=== PATIENT | male | born 1995 | race Caucasian/White ===

== ENCOUNTER 2021-10-30 15:45 | Emergency (ER) | payer MEDICAID ==
[~2021-10-30] VITALS: Ht 185.4 cm; Wt 64.0 kg
[2021-10-30] MEDS ORDERED: ondansetron/PF 4mg/2ml inj IV ONE (16:00)
[2021-10-30] MEDS ORDERED: levetiracetam inj 1,000 MG in normal saline 100ml IV soln 90 ML IV ONE (16:00)
[2021-10-30] MEDS ORDERED: normal saline 1000ml 1,000 ML IV ONE (16:00)
[2021-10-30] MEDS ORDERED: levetiracetam inj 1,000 MG in normal saline 100ml IV soln 100 ML IV ONE (16:09)
[2021-10-30 16:35] LABS: BASOPHILS % (AUTO) 0.1 % (0-1); EOSINOPHILS % (AUTO) 0 % (0-6); HEMATOCRIT 44.7 % (42.0-52.0); HEMOGLOBIN 15.3 g/dl (14.0-17.9); LYMPHOCYTES # (AUTO) 1.1 X10'3 (1.1-4.8); LYMPHOCYTES % (AUTO) 10.4 % (21-51); MEAN CORPUSCULAR HEMOGLOBIN 30.8 PG (27.0-31.0); MEAN CORPUSCULAR HGB CONC 34.2 g/dL (33.0-36.5); MEAN PLATELET VOLUME 9.2 FL (7.4-10.4); MONOCYTES # (AUTO) 0.5 X10'3 (0-0.9); MONOCYTES % (AUTO) 4.8 % (2-12); NEUTROPHILS # (AUTO) 8.9 X10'3 (1.8-7.7); NEUTROPHILS % (AUTO) 84.7 % (42-75); PLATELET COUNT 237 X10'3 (140-440); RED BLOOD COUNT 4.96 X10'6 (4.70-6.10); RED CELL DISTRIBUTION WIDTH 13.5 % (11.5-14.5); WHITE BLOOD COUNT 10.4 X10'3 (4.5-11.0)
[2021-10-30 16:59] LABS: ALANINE AMINOTRANSFERASE 64 U/L (12-78); ALBUMIN 4.8 G/DL (3.4-5.0); ALBUMIN/GLOBULIN RATIO 1.4 (1.1-1.5); ALKALINE PHOSPHATASE 74 IU/L (46-116); ANION GAP 15 (8-16); ASPARTATE AMINO TRANSFERASE 29 U/L (10-37); BILIRUBIN,TOTAL 0.3 MG/DL (0.1-1.0); BLOOD UREA NITROGEN 9 MG/DL (7-18); BUN/CREATININE RATIO 9.6 (5.4-32.0); CALCIUM 8.9 MG/DL (8.5-10.1); CHLORIDE 104 MMOL/L (99-107); CREATININE 0.94 MG/DL (0.60-1.10); GLUCOSE 151 MG/DL (70-104); LIPASE 80 U/L (73-393); MAGNESIUM 2.2 MG/DL (1.5-2.4); POTASSIUM 4.4 MMOL/L (3.5-5.1); SODIUM 141 MMOL/L (135-145); TOTAL CARBON DIOXIDE 22.5 MMOL/L (24-32); TOTAL PROTEIN 8.2 G/DL (6.4-8.2); eGFR > 90 ML/MIN
[2021-10-30 17:04] LABS: ETHANOL < 0.010 GM/DL (0.0-0.010)
[2021-10-30 17:10] VITALS: BP 126/75
[2021-10-30] MEDS ORDERED: levetiracetam 250mg tablet PO ONE (17:10)
--- NOTE | 2021-10-30 17:10 | NUR ---
IV infiltrated. Dr. Walker said it was ok not to finish IV.
--- NOTE | 2021-10-30 17:19 | NUR ---
Pt and given and understands d/c instructions.
== END 2021-10-30 17:19 | disposition home or self-care (01) ==
LOC: ER 15:46
DX: R56.9 Unspecified convulsions (principal); Z88.5 Allergy status to narcotic agent; Z79.899 Other long term (current) drug therapy
CPT/HCPCS: 36415; 80053; 80320; 83690; 83735; 85025; 96365; 96375; 99284; J1953; J2405; J3490; J7030

== ENCOUNTER 2021-12-18 15:25 | Emergency (ER) | payer MEDICAID ==
[~2021-12-18] VITALS: Ht 185.4 cm; Wt 68.2 kg
[2021-12-18 15:30] VITALS: BP 161/94
== END 2021-12-18 16:02 | disposition left against medical advice (07) ==
LOC: ER 15:26
DX: T63.001A Toxic effect of unspecified snake venom, accidental (unintentional), initial encounter (principal); Z53.21 Procedure and treatment not carried out due to patient leaving prior to being seen by health care provider; Y92.89 Other specified places as the place of occurrence of the external cause

== ENCOUNTER 2022-04-10 10:37 | Emergency (ER) | payer MEDICAID ==
[~2022-04-10] VITALS: Ht 180.3 cm; Wt 63.6 kg
[2022-04-10] MEDS ORDERED: levetiracetam inj 1,000 MG in normal saline 100ml IV soln 90 ML IV ONE (12:15)
[2022-04-10] MEDS ORDERED: normal saline 1000ml 1,000 ML IV ONE (12:15)
[2022-04-10] MEDS ORDERED: ondansetron/PF 4mg/2ml inj IV ONE (12:15)
[2022-04-10] MEDS ORDERED: levetiracetam inj 1,000 MG in normal saline 100ml IV soln 100 ML IV ONE (12:22)
[2022-04-10 12:42] LABS: BASOPHILS % (AUTO) 0.2 % (0-1); EOSINOPHILS % (AUTO) 0.5 % (0-6); HEMATOCRIT 44.2 % (42.0-52.0); HEMOGLOBIN 14.8 g/dl (14.0-17.9); LYMPHOCYTES % (AUTO) 9.6 % (21-51); MEAN CORPUSCULAR HEMOGLOBIN 30.3 PG (27.0-31.0); MEAN CORPUSCULAR HGB CONC 33.5 g/dL (33.0-36.5); MEAN CORPUSCULAR VOLUME 90.3 FL (78-98); MEAN PLATELET VOLUME 8.6 FL (7.4-10.4); MONOCYTES # (AUTO) 0.9 X10'3 (0-0.9); MONOCYTES % (AUTO) 8.6 % (2-12); NEUTROPHILS # (AUTO) 8.1 X10'3 (1.8-7.7); NEUTROPHILS % (AUTO) 81.1 % (42-75); PLATELET COUNT 217 X10'3 (140-440); RED BLOOD COUNT 4.89 X10'6 (4.70-6.10); RED CELL DISTRIBUTION WIDTH 13.4 % (11.5-14.5)
[2022-04-10 12:56] LABS: ALANINE AMINOTRANSFERASE 49 U/L (12-78); ALBUMIN 4.7 G/DL (3.4-5.0); ALBUMIN/GLOBULIN RATIO 1.6 (1.1-1.5); ALKALINE PHOSPHATASE 72 IU/L (46-116); ANION GAP 9 (8-16); ASPARTATE AMINO TRANSFERASE 30 U/L (10-37); BILIRUBIN,TOTAL 0.2 MG/DL (0.1-1.0); BLOOD UREA NITROGEN 10 MG/DL (7-18); BUN/CREATININE RATIO 16.4 (5.4-32.0); CHLORIDE 105 MMOL/L (99-107); CREATININE 0.61 MG/DL (0.60-1.10); GLUCOSE 93 MG/DL (70-104); POTASSIUM 4.3 MMOL/L (3.5-5.1); SODIUM 140 MMOL/L (135-145); TOTAL CARBON DIOXIDE 26.4 MMOL/L (24-32); TOTAL PROTEIN 7.6 G/DL (6.4-8.2); eGFR > 90 ML/MIN
[2022-04-10 13:01] LABS: CLARITY,URINE SLIGHTLY CLOUDY (Clear); COLOR,URINE YELLOW (Yellow); GLUCOSE, URINE NEGATIVE (Neg); KETONES,URINE NEGATIVE (Neg); LEUKOCYTE ESTERASE ,URINE NEGATIVE (Neg); NITRITES, URINE NEGATIVE (Neg); OCCULT BLOOD,URINE SMALL (Neg); PROTEIN,URINE TRACE mg/dl (Neg); UROBILINOGEN,URINE 0.2 E.U/dL (0.2-1.0)
[2022-04-10 13:06] LABS: UA COLLECTION TYPE VOIDED
[2022-04-10 13:21] LABS: MUCUS STRANDS MODERATE /LPF (Neg); SQUAMOUS EPITHELIAL CELL,UR FEW /LPF (FEW)
[2022-04-10 13:22] LABS: BACTERIA,URINE FEW /HPF (Neg); HYALINE CASTS 0-3 /LPF (NEGATIVE); RBC,URINE 0-2 /HPF (0-2); WBC,URINE 0-4 /HPF (0-4)
[2022-04-10 13:22] LABS: PHENYTOIN (DILANTIN) 3.8 UG/ML (10.0-20.0)
[2022-04-10 13:40] LABS: URINE AMPHETAMINE SCREEN NEGATIVE (Neg); URINE BARBITUATE SCREEN NEGATIVE (Neg); URINE BENZODIAZEPINES SCREEN NEGATIVE (Neg); URINE CANNABINOID SCREEN POSITIVE (Neg); URINE COCAINE SCREEN NEGATIVE (Neg); URINE METHADONE SCREEN NEGATIVE (Neg); URINE OPIATE SCREEN NEGATIVE (Neg); URINE PHENCYCLIDINE SCREEN NEGATIVE (Neg)
[2022-04-10 14:07] VITALS: BP 127/80
== END 2022-04-10 14:09 | disposition home or self-care (01) ==
LOC: ER 10:38
DX: R56.9 Unspecified convulsions (principal); F17.200 Nicotine dependence, unspecified, uncomplicated; Z88.5 Allergy status to narcotic agent
CPT/HCPCS: 36415; 80053; 80185; 80305; 81001; 85025; 96374; 96375; 99284; J1953; J2405; J3490; J7030

== ENCOUNTER 2022-06-05 14:45 | Emergency (ER) | payer MEDICAID ==
[2022-06-05] MEDS ORDERED: levetiracetam inj 1,000 MG in normal saline 100ml IV soln 90 ML IV STA (15:14)
[2022-06-05] MEDS ORDERED: levetiracetam inj 1,000 MG in normal saline 100ml IV soln 100 ML IV STA (15:20)
--- NOTE | 2022-06-05 15:31 | NUR ---
PATIENT REFUSING LAB DRAW/TREATMENT, SEEN BY SCOTT NORTON IN [place] [facility], [facility] DC'D, CANULA INTACT, PATIENT AMBULATED OFF UNIT INDEPENDENTLY.
== END 2022-06-05 15:32 | disposition left against medical advice (07) ==
LOC: ER 14:46
DX: R56.9 Unspecified convulsions (principal); Z53.21 Procedure and treatment not carried out due to patient leaving prior to being seen by health care provider

== ENCOUNTER 2022-08-01 08:41 | Emergency (ER) | payer MEDICAID ==
[~2022-08-01] VITALS: Ht 182.9 cm; Wt 68.2 kg
[2022-08-01] MEDS ORDERED: normal saline 1000ML IV soln IVB ONE (08:55)
[2022-08-01] MEDS ORDERED: metoprolol tartrate 25mg tablet PO ONE (08:55)
[2022-08-01 08:57] LABS: BASOPHILS # (AUTO) 0.1 X10'3 (0-0.2); BASOPHILS % (AUTO) 1.1 % (0-1); EOSINOPHILS # (AUTO) 0.4 X10'3 (0-0.9); EOSINOPHILS % (AUTO) 5.7 % (0-6); HEMATOCRIT 44.1 % (42.0-52.0); HEMOGLOBIN 14.9 g/dl (14.0-17.9); LYMPHOCYTES # (AUTO) 1.7 X10'3 (1.1-4.8); LYMPHOCYTES % (AUTO) 28.1 % (21-51); MEAN CORPUSCULAR HEMOGLOBIN 30.5 PG (27.0-31.0); MEAN CORPUSCULAR HGB CONC 33.8 g/dL (33.0-36.5); MEAN CORPUSCULAR VOLUME 90.2 FL (78-98); MEAN PLATELET VOLUME 8.9 FL (7.4-10.4); MONOCYTES # (AUTO) 0.6 X10'3 (0-0.9); MONOCYTES % (AUTO) 10.4 % (2-12); NEUTROPHILS # (AUTO) 3.4 X10'3 (1.8-7.7); NEUTROPHILS % (AUTO) 54.7 % (42-75); PLATELET COUNT 201 X10'3 (140-440); RED BLOOD COUNT 4.89 X10'6 (4.70-6.10); RED CELL DISTRIBUTION WIDTH 13.6 % (11.5-14.5); WHITE BLOOD COUNT 6.2 X10'3 (4.5-11.0)
[2022-08-01 09:13] LABS: ALANINE AMINOTRANSFERASE 90 U/L (12-78); ALBUMIN 4.5 G/DL (3.4-5.0); ALBUMIN/GLOBULIN RATIO 1.7 (1.1-1.5); ALKALINE PHOSPHATASE 85 IU/L (46-116); ANION GAP 6 (8-16); ASPARTATE AMINO TRANSFERASE 39 U/L (10-37); BILIRUBIN,TOTAL 0.3 MG/DL (0.1-1.0); BLOOD UREA NITROGEN 10 MG/DL (7-18); BUN/CREATININE RATIO 11.4 (10.0-20.0); CALCIUM 8.5 MG/DL (8.5-10.1); CHLORIDE 105 MMOL/L (99-107); CREATININE 0.88 MG/DL (0.60-1.10); GLUCOSE 115 MG/DL (70-104); POTASSIUM 4.1 MMOL/L (3.5-5.1); SODIUM 140 MMOL/L (135-145); TOTAL CARBON DIOXIDE 28.6 MMOL/L (24-32); TOTAL PROTEIN 7.2 G/DL (6.4-8.2); eGFR > 90 ML/MIN
[2022-08-01 09:14] LABS: D-DIMER 0.21 MG/L FEU (0-0.50)
[2022-08-01 09:20] LABS: MAGNESIUM 2.1 MG/DL (1.5-2.4)
[2022-08-01 09:26] LABS: LIPASE 85 U/L (73-393)
[2022-08-01] MEDS ORDERED: aspirin 81mg tab.chew PO ONE (09:30)
[2022-08-01] MEDS ORDERED: nitroGLYCERIN 0.4mg SUBLingual tab SL PRN (09:30)
[2022-08-01] MEDS ORDERED: LIDOcaine Viscous 15ml cup MM ONE (10:50)
[2022-08-01] MEDS ORDERED: mag hydrox/Alum hydrox/simeth 30ml oral suspension PO ONE (10:50)
[2022-08-01] MEDS ORDERED: sucralfate 1 gm tablet PO ONE (10:50)
[2022-08-01 10:51] LABS: CLARITY,URINE CLEAR (Clear); COLOR,URINE STRAW (Yellow); GLUCOSE, URINE NEGATIVE (Neg); KETONES,URINE NEGATIVE (Neg); LEUKOCYTE ESTERASE ,URINE NEGATIVE (Neg); NITRITES, URINE NEGATIVE (Neg); OCCULT BLOOD,URINE NEGATIVE (Neg); PROTEIN,URINE NEGATIVE (Neg); UROBILINOGEN,URINE 0.2 E.U/dL (0.2-1.0)
[2022-08-01 10:58] LABS: URINE AMPHETAMINE SCREEN NEGATIVE (Neg); URINE BARBITUATE SCREEN NEGATIVE (Neg); URINE BENZODIAZEPINES SCREEN NEGATIVE (Neg); URINE CANNABINOID SCREEN POSITIVE (Neg); URINE COCAINE SCREEN NEGATIVE (Neg); URINE METHADONE SCREEN NEGATIVE (Neg); URINE OPIATE SCREEN NEGATIVE (Neg); URINE PHENCYCLIDINE SCREEN NEGATIVE (Neg)
[2022-08-01 11:04] LABS: UA COLLECTION TYPE CLN CATCH MIDSTREAM
[2022-08-01] MEDS ORDERED: SUCR1TAB34 PO (11:13)
[2022-08-01] MEDS ORDERED: PANT-47 PO (11:13)
[2022-08-01 11:24] VITALS: BP 125/95
== END 2022-08-01 11:26 | disposition home or self-care (01) ==
LOC: ER 08:41
DX: I10 Essential (primary) hypertension (principal); K29.70 Gastritis, unspecified, without bleeding; Z56.0 Unemployment, unspecified; Z79.899 Other long term (current) drug therapy
CPT/HCPCS: 36415; 71045; 80053; 80305; 81003; 83690; 83735; 83880; 84484; 85025; 85379; 93005; 96360; 99285; J7030

== ENCOUNTER 2022-08-17 09:01 | Emergency (ER) | payer MEDICAID ==
[~2022-08-17] VITALS: Ht 185.4 cm; Wt 68.0 kg
[~2022-08-17 09:01] MED LIST: PANT-47 PO; SUCR1TAB34 PO
[2022-08-17 09:03] VITALS: BP 127/90
[2022-08-17] MEDS ORDERED: METO50TA16 PO (10:47)
== END 2022-08-17 11:30 | disposition home or self-care (01) ==
LOC: ER 09:01
DX: J02.9 Acute pharyngitis, unspecified (principal); I10 Essential (primary) hypertension; Z88.8 Allergy status to other drugs, medicaments and biological substances; Z56.0 Unemployment, unspecified
CPT/HCPCS: 87077; 87081; 87880; 99283; J7030

== ENCOUNTER 2022-10-29 14:52 | Emergency (ER) | payer MEDICAID ==
[~2022-10-29] VITALS: Ht 185.4 cm; Wt 68.2 kg
[~2022-10-29 14:52] MED LIST changes: +METO50TA16 PO
[2022-10-29 15:21] VITALS: TEMP 97.6
[2022-10-29] MEDS ORDERED: phenytoin sod 50mg/ml 2ml vial IV STA (15:56)
[2022-10-29] MEDS ORDERED: ketorolac trometh. 30mg/ml inj. IV ONE (16:00)
[2022-10-29] MEDS ORDERED: diphenhydrAMINE 50 mg/ml inj IV ONE (16:00)
[2022-10-29] MEDS ORDERED: normal saline 1000ML IV soln IVB ONE (16:00)
[2022-10-29] MEDS ORDERED: metoclopramide 5 mg/ml inj IV ONE (16:00)
[2022-10-29] MEDS ORDERED: ketorolac tromethamine 15mg/ml inj. IV ONE (16:05)
--- NOTE | 2022-10-29 16:54 | NUR ---
attempted to admin 500mg dilantin iv slow push. pt c/o pain in hand radiating to elbow refused to allow this RN to complete remaining dose of 450 mg admin. MD notified ok to stop admin will give po dilantin in its place. new plan of care discussed with pt no concerns at present time.
[2022-10-29] MEDS ORDERED: phenytoin sod ER 100mg capsule PO ONE (16:55)
[2022-10-29 17:59] VITALS: BP 116/73; PULSE 81; RESP 14; O2SAT 97
== END 2022-10-29 18:02 | disposition home or self-care (01) ==
LOC: ER 14:52
DX: S20.219A Contusion of unspecified front wall of thorax, initial encounter (principal); G40.909 Epilepsy, unspecified, not intractable, without status epilepticus; R11.2 Nausea with vomiting, unspecified; M25.512 Pain in left shoulder; R07.89 Other chest pain; I10 Essential (primary) hypertension; Z91.041 Radiographic dye allergy status; Z88.5 Allergy status to narcotic agent; X58.XXXA Exposure to other specified factors, initial encounter; Y93.89 Activity, other specified; Y92.89 Other specified places as the place of occurrence of the external cause; Y99.8 Other external cause status
CPT/HCPCS: 71101; 73030; 96361; 96374; 96375; 99284; J1165; J1200; J1885; J2765; J7030

== ENCOUNTER 2022-11-01 18:48 | Emergency (ER) | payer MEDICAID ==
[~2022-11-01] VITALS: Ht 182.9 cm; Wt 58.2 kg
[2022-11-01 19:10] VITALS: BP 165/114; PULSE 64; RESP 16; TEMP 98; O2SAT 97
== END 2022-11-01 23:39 | disposition left against medical advice (07) ==
LOC: ER 18:49
DX: R56.9 Unspecified convulsions (principal); R52 Pain, unspecified; Z53.21 Procedure and treatment not carried out due to patient leaving prior to being seen by health care provider
CPT/HCPCS: 82948; 99281

== ENCOUNTER 2022-11-20 08:17 | Emergency (ER) | payer MEDICAID ==
[~2022-11-20] VITALS: Ht 185.4 cm; Wt 68.2 kg
[2022-11-20 08:24] VITALS: TEMP 97.9
[2022-11-20] MEDS ORDERED: LORazepam 2 mg/ml vial ONE (08:55)
--- NOTE | 2022-11-20 08:56 | NUR ---
PT HAD WITNESSED SEIZIRE BY STAFF
[2022-11-20] MEDS ORDERED: levetiracetam inj 1,000 MG in normal saline 100ml IV soln 90 ML IV ONE (08:59)
[2022-11-20] MEDS ORDERED: levetiracetam inj 1,000 MG in normal saline 100ml IV soln 100 ML IV ONE (09:00)
[2022-11-20] MEDS ORDERED: ringers solution, lacted 1,000 ML IV ONE ×2 (09:10→10:00)
[2022-11-20 10:47] LABS: BASOPHILS % (AUTO) 0.1 % (0-1); EOSINOPHILS # (AUTO) 0.1 X10'3 (0-0.9); EOSINOPHILS % (AUTO) 0.6 % (0-6); HEMATOCRIT 42.6 % (42.0-52.0); HEMOGLOBIN 14.4 g/dl (14.0-17.9); LYMPHOCYTES # (AUTO) 0.9 X10'3 (1.1-4.8); MEAN CORPUSCULAR HEMOGLOBIN 30.6 PG (27.0-31.0); MEAN CORPUSCULAR HGB CONC 33.7 g/dL (33.0-36.5); MEAN CORPUSCULAR VOLUME 90.8 FL (78-98); MEAN PLATELET VOLUME 8.6 FL (7.4-10.4); MONOCYTES # (AUTO) 0.6 X10'3 (0-0.9); MONOCYTES % (AUTO) 6.5 % (2-12); NEUTROPHILS # (AUTO) 7.9 X10'3 (1.8-7.7); NEUTROPHILS % (AUTO) 82.8 % (42-75); PLATELET COUNT 205 X10'3 (140-440); RED BLOOD COUNT 4.69 X10'6 (4.70-6.10); RED CELL DISTRIBUTION WIDTH 13.1 % (11.5-14.5); WHITE BLOOD COUNT 9.5 X10'3 (4.5-11.0)
[2022-11-20 11:05] LABS: ALANINE AMINOTRANSFERASE 60 U/L (12-78); ALBUMIN 3.8 G/DL (3.4-5.0); ALBUMIN/GLOBULIN RATIO 1.3 (1.1-1.5); ALKALINE PHOSPHATASE 67 IU/L (46-116); ANION GAP 8 (8-16); ASPARTATE AMINO TRANSFERASE 23 U/L (10-37); BILIRUBIN,TOTAL 0.2 MG/DL (0.1-1.0); BLOOD UREA NITROGEN 9 MG/DL (7-18); BUN/CREATININE RATIO 11.7 (10.0-20.0); CALCIUM 8.2 MG/DL (8.5-10.1); CHLORIDE 107 MMOL/L (99-107); CREATININE 0.77 MG/DL (0.60-1.10); GLUCOSE 111 MG/DL (70-104); POTASSIUM 4.6 MMOL/L (3.5-5.1); SODIUM 141 MMOL/L (135-145); TOTAL CARBON DIOXIDE 26.5 MMOL/L (24-32); TOTAL PROTEIN 6.8 G/DL (6.4-8.2); eCRCL 137 ML/MIN; eGFR > 90 ML/MIN
--- NOTE | 2022-11-20 13:28 | NUR ---
PT PASSED ROAD TEST
[2022-11-20 14:10] VITALS: BP 128/81; PULSE 82; RESP 18; O2SAT 96
== END 2022-11-20 14:39 | disposition home or self-care (01) ==
LOC: ER 08:17
DX: G40.909 Epilepsy, unspecified, not intractable, without status epilepticus (principal); R41.82 Altered mental status, unspecified; I10 Essential (primary) hypertension; Z56.0 Unemployment, unspecified; Z79.899 Other long term (current) drug therapy
CPT/HCPCS: 36415; 71045; 80053; 85025; 96365; 99285; J1953; J2060; J3490; J7120; 96375

== ENCOUNTER 2022-12-30 10:42 | Emergency (ER) | payer MEDICAID ==
[2022-12-30 10:50] VITALS: BP 141/92; PULSE 63; RESP 16; TEMP 97.8; O2SAT 99
[2022-12-30] MEDS ORDERED: dextrose 5%-1/4 NS 250ml IV soln IV STA (11:13)
[2022-12-30] MEDS ORDERED: LORazepam 2 mg/ml vial IM ONE (11:15)
[2022-12-30] MEDS ORDERED: thiamine 100mg/ml 2ml inj. IM ONE (11:15)
[2022-12-30 11:40] LABS: BASOPHILS % (AUTO) 0.2 % (0-1); EOSINOPHILS # (AUTO) 0.1 X10'3 (0-0.9); EOSINOPHILS % (AUTO) 1.3 % (0-6); HEMATOCRIT 45.6 % (42.0-52.0); HEMOGLOBIN 15.5 g/dl (14.0-17.9); LYMPHOCYTES # (AUTO) 2.1 X10'3 (1.1-4.8); LYMPHOCYTES % (AUTO) 25.2 % (21-51); MEAN CORPUSCULAR HEMOGLOBIN 30.8 PG (27.0-31.0); MEAN CORPUSCULAR VOLUME 90.6 FL (78-98); MEAN PLATELET VOLUME 9.3 FL (7.4-10.4); MONOCYTES # (AUTO) 0.7 X10'3 (0-0.9); MONOCYTES % (AUTO) 7.9 % (2-12); NEUTROPHILS # (AUTO) 5.5 X10'3 (1.8-7.7); NEUTROPHILS % (AUTO) 65.4 % (42-75); PLATELET COUNT 246 X10'3 (140-440); RED BLOOD COUNT 5.03 X10'6 (4.70-6.10); RED CELL DISTRIBUTION WIDTH 13.3 % (11.5-14.5); WHITE BLOOD COUNT 8.3 X10'3 (4.5-11.0)
[2022-12-30] MEDS ORDERED: 1/4 NS IV ONE (11:50)
[2022-12-30] MEDS ORDERED: DEXTROSE 5% IV ONE (11:50)
[2022-12-30] MEDS ORDERED: PHENYTOIN 250 MG/5 ML IV STA (11:51)
[2022-12-30 11:54] LABS: ALANINE AMINOTRANSFERASE 28 U/L (12-78); ALBUMIN 4.5 G/DL (3.4-5.0); ALBUMIN/GLOBULIN RATIO 1.3 (1.1-1.5); ALKALINE PHOSPHATASE 65 IU/L (46-116); ANION GAP 13 (8-16); ASPARTATE AMINO TRANSFERASE 20 U/L (10-37); BILIRUBIN,TOTAL 0.5 MG/DL (0.1-1.0); BLOOD UREA NITROGEN 10 MG/DL (7-18); CALCIUM 9.1 MG/DL (8.5-10.1); CHLORIDE 99 MMOL/L (99-107); GLUCOSE 127 MG/DL (70-104); POTASSIUM 4.4 MMOL/L (3.5-5.1); SODIUM 133 MMOL/L (135-145); TOTAL CARBON DIOXIDE 21.4 MMOL/L (24-32); eGFR 88 ML/MIN
[2022-12-30] MEDS ORDERED: LORazepam 2 mg/ml vial IV ONE (12:10)
[2022-12-30] MEDS ORDERED: phenytoin sod inj 500 MG in normal saline 100ml IV soln 90 ML IV ONE (12:13)
--- NOTE | 2022-12-30 12:21 | NUR ---
Discussed with Charge nurse Francie about the order for Dilantin IV push and that I spoke to the pharmacist about this to change the order for infusion instead as it may infiltrate my patient's IV. Francie instructed me to just give slow IV push and flush the line well with NS flush. Dilantin IV slow IV pushed for 15 minutes. Pharmacist delivered the Dilantin infusion after the IV push was already given
[2022-12-30] MEDS ORDERED: PHEN100C12 PO (14:20)
== END 2022-12-30 14:53 | disposition home or self-care (01) ==
LOC: ER 10:42
DX: G40.802 Other epilepsy, not intractable, without status epilepticus (principal)
CPT/HCPCS: 36415; 80053; 84484; 85025; 93005; 96361; 96372; 96374; 99284; J2060; J3411; J7042; 96365; 96375; A4615

== ENCOUNTER 2023-06-07 09:31 | Emergency (ER) | payer MEDICAID ==
[~2023-06-07] VITALS: Ht 185.4 cm; Wt 71.6 kg
[~2023-06-07 09:31] MED LIST changes: +PHEN100C12 PO
[2023-06-07 09:34] VITALS: TEMP 98.7
[2023-06-07 10:18] LABS: BILIRUBIN,URINE NEGATIVE (Neg); CLARITY,URINE CLEAR (Clear); COLOR,URINE YELLOW (Yellow); GLUCOSE, URINE NEGATIVE (Neg); KETONES,URINE NEGATIVE (Neg); LEUKOCYTE ESTERASE ,URINE NEGATIVE (Neg); NITRITES, URINE NEGATIVE (Neg); OCCULT BLOOD,URINE NEGATIVE (Neg); PH,URINE 5.5 (4.8-8.0); PROTEIN,URINE NEGATIVE (Neg); UROBILINOGEN,URINE 0.2 E.U/dL (0.2-1.0)
[2023-06-07 10:24] LABS: UA COLLECTION TYPE CLN CATCH MIDSTREAM
[2023-06-07 11:43] LABS: MONOCYTES # (AUTO) 0.9 X10'3 (0-0.9)
[2023-06-07 11:44] LABS: BASOPHILS % (AUTO) 0.1 % (0-1); EOSINOPHILS # (AUTO) 0.3 X10'3 (0-0.9); EOSINOPHILS % (AUTO) 3.5 % (0-6); HEMATOCRIT 48.1 % (42.0-52.0); HEMOGLOBIN 16.4 g/dl (14.0-17.9); LYMPHOCYTES # (AUTO) 2.6 X10'3 (1.1-4.8); LYMPHOCYTES % (AUTO) 30.7 % (21-51); MEAN CORPUSCULAR HEMOGLOBIN 30.4 PG (27.0-31.0); MEAN CORPUSCULAR VOLUME 89.6 FL (78-98); NEUTROPHILS # (AUTO) 4.7 X10'3 (1.8-7.7); NEUTROPHILS % (AUTO) 54.7 % (42-75); PLATELET COUNT 267 X10'3 (140-440); RED BLOOD COUNT 5.37 X10'6 (4.70-6.10); RED CELL DISTRIBUTION WIDTH 13.4 % (11.5-14.5); WHITE BLOOD COUNT 8.6 X10'3 (4.5-11.0)
[2023-06-07 12:05] LABS: ALANINE AMINOTRANSFERASE 45 U/L (12-78); ALBUMIN 4.8 G/DL (3.4-5.0); ALBUMIN/GLOBULIN RATIO 1.1 (1.1-1.5); ALKALINE PHOSPHATASE 71 IU/L (46-116); ANION GAP 10 (8-16); ASPARTATE AMINO TRANSFERASE 24 U/L (10-37); BILIRUBIN,TOTAL 0.4 MG/DL (0.1-1.0); BLOOD UREA NITROGEN 11 MG/DL (7-18); BUN/CREATININE RATIO 15.9 (10.0-20.0); CALCIUM 9.2 MG/DL (8.5-10.1); CHLORIDE 105 MMOL/L (99-107); CREATININE 0.69 MG/DL (0.60-1.10); GLUCOSE 90 MG/DL (70-104); LIPASE 35 U/L (16-77); POTASSIUM 4.2 MMOL/L (3.5-5.1); SODIUM 142 MMOL/L (135-145); TOTAL CARBON DIOXIDE 27.2 MMOL/L (24-32); eCRCL 159 ML/MIN; eGFR > 90 ML/MIN
[2023-06-07 12:31] VITALS: BP 135/97; PULSE 72; RESP 18; O2SAT 99
== END 2023-06-07 12:51 | disposition home or self-care (01) ==
LOC: ER 09:32
DX: K46.9 Unspecified abdominal hernia without obstruction or gangrene (principal); H53.10 Unspecified subjective visual disturbances; I10 Essential (primary) hypertension; Z56.0 Unemployment, unspecified; Z91.041 Radiographic dye allergy status; Z79.899 Other long term (current) drug therapy
CPT/HCPCS: 36415; 70450; 76705; 76882; 80053; 81003; 83690; 85025; 99284